=== PATIENT | female | born 1980 | race Caucasian/White ===

== ENCOUNTER 2024-03-28 08:16 | Day surgery (SDC) | payer SELFPAY ==
[2024-03-28 08:52] VITALS: BMI 31.6
[2024-03-28 08:58] VITALS: BP 185/122; PULSE 99; RESP 18; TEMP 36.1; O2SAT 100
[2024-03-28] MEDS: sodium chloride 0.9% 500 ML 15 ML IV (09:09)
--- NOTE | 2024-03-28 09:12 | ANES.PREANE2 ---
Pre-Anesthetic Assessment Height/Weight: Height 1.57 m Weight 78.471 kg Temp Pulse Resp BP Pulse Ox O2 Del Method 97 F L 99 18 185/122 100 Room Air 03/28/24 08:58 03/28/24 08:58 03/28/24 08:58 03/28/24 08:58 03/28/24 08:58 03/28/24 08:58 Operation Date: 03/28/24 09:45 Proposed Procedures p EGD 50744, 31700, G0105, K92.1(Not Applicable) - Edi Castro DO s Colonoscopy(Not Applicable) - Edi Castro DO Familial anesthetic complications: None Was Beta Mitzi taken within 24 hours: N/A Was Clonidine taken within 24 hours: N/A Last intake: Intake Last Liquid Date 03/27/24 Last Liquid Time 22:00 Last Solid Date 03/26/24 Last Solid Time 18:00 Social No alcohol and No tobacco Exam alert, oriented x 3, clear to auscultation bilaterally and regular rate & rhythm Airway Submandibular: within normal limits Cervical ROM: within normal limits Mallampati: Class II Dentition: chipped (Top left, back tooth chipped) and full History/ROS No significant history except as noted and No significant complaints Pulmonary None reported CV/HEM Hypertension and Murmur None reported Hepatic None reported GI None reported Metabolic None reported Musc/skel None reported Neuropsych None reported Anesthetic Plan ASA status: 2 Anesthesia: Anesthesia Evaluation, General and MAC Risk of > 500 ml blood loss (7ml/kg in children): No Medications/Allergies Home Medications ?Medication ?Instructions ?Recorded ?Confirmed ?Last Taken ?Type No Known Home Medications 03/23/24 03/26/24 Unknown History Allergies Allergy/AdvReac Type Severity Reaction Status Date / Time No Known Allergies Allergy Unverified 03/26/24 10:11 Current Medications Generic Name Dose Route Start Last Admin Trade Name Freq PRN Reason Stop Dose Admin Sodium Chloride 500 mls @ 15 mls/hr 03/28/24 08:19 03/28/24 09:09 Sodium Chloride 0.9% IV 03/29/24 08:18 15 mls/hr .Q24H PRN Administration COLONOSCOPY FLUIDS PFSH Anesthesia Medical History Encounter to establish care with new provider Elevated blood pressure reading without diagnosis of hypertension Blood in stool PCOS (polycystic ovarian syndrome) Surgical History History of hymenectomy Hx of LASIK Family History Mother Cancer Diabetes Parkinson disease Father Hypertension Social History Smoking and tobacco/nicotine status: never used tobacco/nicotine Female Reproductive History Date of last menstrual period: 03/08/24 Data Anesthesia Cardiac Studies: No Data to Display
--- NOTE | 2024-03-28 09:45 | W.PM.OPSUD ---
Surgery/Procedure H&P Update DATE OF PROCEDURE: March 28, 2024 DATE H&P PERFORMED: 03/23/24 H&P UPDATE INFORMATION: I have reviewed H&P completed within last 30 days, I have examined patient prior to procedure and No changes to prior documentation PLANNED PROCEDURE: Operation Date: 03/28/24 09:45 Proposed Procedures p EGD 91779, [id number], G0105, K92.1(Not Applicable) - DO brunilda Comer Colonoscopy(Not Applicable) - Edi Castro DO
[2024-03-28 10:09] VITALS: BP 143/83; PULSE 72; TEMP 36.1; O2SAT 99
[2024-03-28 10:17] LABS: OR HCG Qualitative Urine Negative (Negative)
[2024-03-28 10:20] VITALS: BP 142/90; PULSE 73; RESP 18; TEMP 36.2; O2SAT 98
--- NOTE | 2024-03-28 10:34 | ANE.PACU2 ---
Inpatient post-anesthesia follow up: Airway intact: Yes Vital signs: Temperature 97.1 F Pulse Rate 73 Respiratory Rate 18 Blood Pressure 142/90 Pulse Oximetry 98 Oxygen Delivery Me thod Room Air Oxygen Flow Rate Fraction of Inspir ed Oxygen Hydration adequate: Yes Nausea and vomiting: No Pain level: 1 Mental status: Baseline
== END 2024-03-28 10:34 | disposition home or self-care (01) ==
PROVIDERS: Student in an Organized Health Care Education/Training Program; Family Provider Family Medicine; Visit Provider Surgery
PROC: 0DJ08ZZ Inspection of Upper Intestinal Tract, Via Natural or Artificial Opening Endoscopic (ICD-10-PCS; principal; 2024-03-28 09:45)
PROC: 0DJD8ZZ Inspection of Lower Intestinal Tract, Via Natural or Artificial Opening Endoscopic (ICD-10-PCS; CPT 45378; 2024-03-28 09:45)
DX: K31.A11 Gastric intestinal metaplasia without dysplasia, involving the antrum (principal); K92.1 Melena; K62.89 Other specified diseases of anus and rectum; I10 Essential (primary) hypertension; R01.1 Cardiac murmur, unspecified; K08.89 Other specified disorders of teeth and supporting structures; E28.2 Polycystic ovarian syndrome; K29.50 Unspecified chronic gastritis without bleeding; Z80.0 Family history of malignant neoplasm of digestive organs
CPT/HCPCS: 43239; 45378; 81025; 88305; J2704; J3490; J7040

== ENCOUNTER → 2024-09-16 18:47 | Outpatient (BNVA) | payer SELFPAY | PROVIDERS: Family Provider Family Medicine; Visit Provider Emergency Medicine | DX: R39.9 Unspecified symptoms and signs involving the genitourinary system (principal) | CPT/HCPCS: 81000 ==